=== PATIENT | male | born 1945 | race Caucasian/White ===

== ENCOUNTER → 2018-12-28 13:36 | Outpatient (CLI) | payer OTHER, SELFPAY ==
--- NOTE | 2018-12-28 09:00 | DI.ECHO.S_ITS ---
Echocardiogram Report + + :Name: ISA DENIS Study Date: 12/28/2018 Height: 71 in : :[facility] Exam Location: [facility] Weight: 240 lb : : Gender: Male BSA: 2.3 m2 : :: 1945 Age: 73 yrs BP: 140/80 mmHg: :Reason For Study: Murmur : : Performed By: Carmen Page : :Referring: TITO BOWEN S : + + Interpretation Summary The left ventricle is normal in size. Left ventricular systolic function is normal. The ejection fraction is estimated to be 60-65%. There are no obvious focal wall motion abnormalities noted but poor endocardial definition reduces the sensitivity for the detection of such. The right ventricle is normal in size and function. Right ventricular systolic pressure is estimated to be 23 mmHg plus the clinically estimated CVP which cannot be estimated on this exam. The left atrium is moderately dilated. Right atrial size is normal. There is mild to moderate mitral annular calcification. There is mild aortic stenosis. There is no other significant valvular heart disease. The ascending aorta is mildly enlarged. The aortic arch is mildly enlarged. Procedure: A two-dimensional transthoracic echocardiogram with color flow and Doppler was performed. The study quality was technically adequate. There is no prior echocardiogram noted for this patient. The patient was in normal sinus rhythm during the exam. Left Ventricle: The left ventricle is normal in size. There is mild concentric left ventricular hypertrophy. Left ventricular systolic function is normal. The ejection fraction is estimated to be 60-65%. There are no obvious focal wall motion abnormalities noted but poor endocardial definition reduces the sensitivity for the detection of such. Diastolic function could not be accurately assessed due to contradictory data. Right Ventricle: The right ventricle is normal in size and function. Atria: The left atrium is moderately dilated. Right atrial size is normal. There is no Doppler evidence for an interatrial shunt. Mitral Valve: The mitral valve leaflets appear mildly thickened, but open well. There is mild to moderate mitral annular calcification. There is trace mitral regurgitation. Aortic Valve: The aortic valve is trileaflet. The aortic valve is mildly calcified. There is mild aortic stenosis. The peak aortic velocity is 2.5 m/sec. The aortic valve mean gradient is 15.3 mmHg. The calculated aortic valve area is 1.8 cm2. The aortic valve area is 1.5 centimeters squared by planimetry. There is trace aortic regurgitation. Tricuspid Valve: The tricuspid valve is normal in structure and function. There is trace tricuspid regurgitation. Right ventricular systolic pressure is estimated to be 23 mmHg plus the clinically estimated CVP which cannot be estimated on this exam. Pulmonic Valve: The pulmonic valve is not well seen, but is grossly normal. There is no pulmonic valvular regurgitation. There is no other significant valvular heart disease. Great Vessels: The aortic root is normal size. The ascending aorta is mildly enlarged. The aortic arch is mildly enlarged. The pulmonary artery is not well visualized, but is probably normal size. The inferior vena cava was not well visualized. The IVC has a measurement of 2.0 mm. Pericardium/ Pleura There is no pericardial effusion. There is no pleural effusion. MMode/2D Measurements & Calculations LVIDd: 4.5 cm LVOT diam: 2.2 cm LVIDs: 2.1 cm Ao root diam: 3.8 cm FS: 52.3 % asc Aorta Diam: 3.6 cm EPSS: 0.23 cm Ao Arch Diam (Prox Trans): 3.8 cm IVSd: 1.2 cm LVPWd: 1.2 cm LV odell. diameter/BSA (cm/m^2): 2.0 LV sys. diameter/BSA (cm/m^2): 0.93 LA A2 area: 30.2 cm2 RA long axis: 5.7 cm LA A4 area: 29.6 cm2 RA area: 21.4 cm2 LA length (vol): 7.3 cm RA vol: 68.3 ml LA vol: 103.9 ml RA : 30.0 ml/m2 LA vol index: 45.6 ml/m2 IVC diam: 2.0 cm RVD1 (basal): 4.0 cm Doppler Measurements & Calculations Ao V2 max: 247.2 cm/sec LVOT Max Mc: 114.8 cm/sec Ao V2 mean: 188.1 cm/sec LV V1 max P.3 mmHg Ao max P.4 mmHg LV V1 VTI: 26.6 cm Ao mean P.3 mmHg DELMAR(I,D): 2.1 cm2 Ao V2 VTI: 48.0 cm DELMAR(V,D): 1.8 cm2 sev ratio: 0.55 DELMAR indexed to BSA (cm^2/m^2): 0.94 MV E max mc: 106.5 cm/sec TR max mc: 241.5 cm/sec MV A max mc: 141.8 cm/sec TR max P.3 mmHg MV E/A: 0.75 PA V2 max: 78.6 cm/sec Med Peak E' Mc: 4.0 cm/sec PA V2 mean: 50.0 cm/sec E/E' med: 26.4 PA mean P.2 mmHg Lat Peak E' Mc: 6.1 cm/sec PA Accel Time: 0.11 sec E/E' lat: 17.5 E/e' average: 22.0 MV dec time: 0.27 sec MV P1/2t: 81.0 msec MVA(VTI): 2.4 cm2 MV V2 mean: 80.6 cm/sec MV P1/2t max mc: 108.2 cm/sec MV mean P.1 mmHg MVA(P1/2t): 2.7 cm2 MV V2 VTI: 42.3 cm SV(LVOT): 102.3 ml _ Reading Physician:04:56 PM
== END ==
PROVIDERS: Visit Provider Nurse Practitioner Acute Care
DX: I35.0 Nonrheumatic aortic (valve) stenosis (principal); I77.89 Other specified disorders of arteries and arterioles; R01.1 Cardiac murmur, unspecified
CPT/HCPCS: 93306

== ENCOUNTER → 2021-12-18 10:40 | Outpatient (CLI) | payer OTHER, SELFPAY ==
[2021-12-18 12:02] LABS: Add Manual Diff / Slide Review NO; Basophils Absolute Auto 100 /uL (0-100); Basophils Percent Auto 0.6 % (0-2); Eosinophils Absolute Auto 200 /uL (0-450); Eosinophils Percent Auto 2.2 % (2-4); Hematocrit 48.2 % (41-53); Hemoglobin 16.8 g/dL (13.5-17.5); Lymphocytes Absolute Auto 2400 /uL (1100-4500); Lymphocytes Percent Auto 21.3 % (25-40); Mean Corpuscular HGB Conc 34.8 % (30-36); Mean Corpuscular Hemoglobin 30.4 PG (26-34); Mean Corpuscular Volume 87.4 fL (80-100); Monocytes Absolute Auto 800 /uL (0-900); Monocytes Percent Auto 7.1 % (3-14); Neutrophils Absolute Auto 7600 /uL (1500-7000); Neutrophils Percent Auto 68.8 % (50-75); Platelet Count 232 X10^3/uL (150-400); Red Blood Cell Count 5.51 X10^6/uL (4.5-5.9); Red Cell Distribution Width 13.1 % (11.6-14.8)
[2021-12-18 12:10] LABS: Hemoglobin A1C% w Est Avg Glu 9.7 % (4.0-6.0)
[2021-12-18 12:12] LABS: BUN Creatinine Ratio 15.4 (6-22); Blood Urea Nitrogen 12 mg/dL (9-20); Calcium 9.1 mg/dL (8.4-10.2); Carbon Dioxide 29 mmol/L (22-32); Chloride 103 mmol/L (98-107); Estimated Glomerular Filt Rate > 60 mL/min (>60); Glucose 121 mg/dL (80-110); HEMOLYSIS 16 (0-50); Potassium 3.9 mmol/L (3.4-5.1); Sodium 141 mmol/L (137-145)
== END ==
PROVIDERS: Referring Provider Orthopaedic Surgery; Visit Provider Orthopaedic Surgery
DX: Z01.818 Encounter for other preprocedural examination (principal); M25.561 Pain in right knee; R73.9 Hyperglycemia, unspecified; Z01.812 Encounter for preprocedural laboratory examination
CPT/HCPCS: 36415; 80048; 83036; 85025; 93005

== ENCOUNTER → 2022-03-24 11:30 | Outpatient (CLI) | payer OTHER, SELFPAY ==
[2022-03-24 12:47] LABS: COVID19 -Nasal RAPID Negative (Negative)
== END ==
PROVIDERS: Referring Provider Orthopaedic Surgery; Visit Provider Orthopaedic Surgery
DX: Z20.822 Contact with and (suspected) exposure to COVID-19 (principal)
CPT/HCPCS: 87635; C9803

== ENCOUNTER 2022-03-27 05:23 | Observation (INO) | payer OTHER, SELFPAY ==
[2022-03-17 13:49] VITALS: BMI 32.1
[2022-03-26] VITALS (14 sets, daily range): BP systolic 114–141; BP diastolic 53–74; PULSE 71–89; RESP 12–18; TEMP 35.7–37.1; O2SAT 90–96; BMI 32.1
--- NOTE | 2022-03-26 06:00 | DI.RAD.S_ITS ---
PROCEDURE: XR KNEE RT 1TO2V INDICATIONS: total right knee TECHNIQUE: 2 views of the knee were acquired. COMPARISON: None. FINDINGS: Bones: Total knee arthroplasty noted in good position. No fracture. Diffuse atherosclerotic vascular calcification noted. Postprocedural soft tissue air joint effusion noted. Soft tissues: No suspicious soft tissue calcifications. IMPRESSION: Total right knee arthroplasty in good position Approved by: Humberto Chapin M.D. on 03/26/2022 at 9:00
[2022-03-26] MEDS: ACETAMINOPHEN 325 MG TABLET 975 MG PO (07:20)
[2022-03-26] MEDS: CELECOXIB 200 MG CAPSULE PO (07:20)
--- NOTE | 2022-03-26 07:20 | PM.PREOP ---
Pre-operative Note COVID-19 COVID-19 status: Negative Result date/Date tested (Pos, Neg/Pending): 03/24/22 Interval Note History & Physical reviewed/Exam performed by Physician: Yes Changes to H&P: No
[2022-03-26] MEDS: CEFAZOLIN 2 GM/100 ML PREMIX 100 ML IV (08:12)
[2022-03-26] MEDS: TRANEXAMIC ACID 1,000 MG VIAL 2000 MG INJ ×2 (08:15→09:14)
--- NOTE | 2022-03-26 08:36 | SUR.OPER ---
Supine on padded OR bed. Pillow under head, arms secured on padded armboards <90 degree abduction. Safety belt across torso. Non-operative leg secured with tape over blanket over lower leg. Operative leg secured in DeMayo positioner.
[2022-03-26] MEDS: BUPIVACAINE LIPOSOME 266 MG/20 ML VIAL INJ (08:43)
[2022-03-26] MEDS: MORPHINE 4 MG/ML INJ INJ (08:43)
[2022-03-26] MEDS: BUPIVACAINE 0.5% (PF) VIAL 30 ML INJ (08:46)
[2022-03-26] MEDS: SODIUM CHLORIDE 0.9% FLUSH 30 ML IV (08:48)
[2022-03-26] MEDS: EPINEPHrine 1 MG/ML 0.3 MG INJ (08:50)
--- NOTE | 2022-03-26 09:45 | P.OP_ITS ---
Operative Date/Time/Diagnoses Date of procedure: 03/26/22 Time of procedure: 09:45 Pre-op diagnosis: Right knee osteoarthritis Post-op diagnosis: same Procedure & Clinicians Procedure: Right total knee replacement Same procedure as scheduled: Yes Indications: The patient has had progressively worsening right knee pain with radiographic changes consistent with arthritis. Non-operative management has failed and the patient has requested total knee replacement. The risks, benefits and alternatives to surgery were discussed with the patient prior to proceeding. Risks discussed included, but were not limited to, failure to relieve pain, stiffness, infection, nerve damage, deep venous thrombosis, pulmonary embolism, stroke, coma, heart attack, permanent paralysis and , as well as the potential need for eventual revision of the prosthetic. Surgeon: Evans Cho Cullet Washer: Robin Drew Click Yes if Unassisted: No Anesthesia Type: General, Spinal and Local Operative Notes Findings: Severe medial and moderate patellofemoral osteoarthritis with relative preservation the lateral compartment. Closure Type: primary Specimen(s): none sent Prosthetic devices, grafts, tissues, transplants, or devices: Implants used in this procedure were manufactured by the [employer] and [employer] and included the BCS II Journey total knee replacement with a size 6 right cobalt chromium femoral component, size 6 right non porous tibial base plate, a 9 mm cross-linked polyethylene tibial insert and a 32 mm oval Lily II patella. Applied: implant(s) Estimated Blood Loss (mL): 25 Blood products transfused: none Tourniquet time (min): 49 Procedure in detail: The patient was seen in the pre-operative area, where the patient identified the right knee as the operative site and this was marked with my initials. The patient received pre-operative antibiotics, and was taken to the operating room and placed on the operative table in the supine position. After satisfactory anesthesia, a time study clerk out was performed. The right leg was encircled with a tourniquet about the proximal thigh, and the leg was prepared from the toes to the tourniquet with ChloroPrep in the usual fashion and draped through sterile drapes. The leg was elevated and exsanguinated with Eschmark bandage and the tourniquet inflated to 250 mmHg pressure. The knee was approached through an approximately 18 cm incision centered over the patella and carried into the knee through a medial parapatellar arthrotomy. The anterior osteophytes and soft tissues were removed. The rotational landmarks of Patillas's line and the transepicondylar axis were marked on the femur with electrocautery, and intramedullary guide holes for the femur and tibia were created. The distal femoral cut was made in 6 degrees of valgus using the intramedullary guide at the primary cut setting. The proximal tibial cut was then made using the intramedullary guide, taking 9 mm of bone off the less involved side. The extension gap was checked and the rotation of the femoral component confirmed with the gap balancing system. The anterior, posterior and chamfer cuts were then made. The posterior osteophytes and soft tissues were then removed. The posterior capsule was injected with part of a mixture of 60 ml 0.25% Marcaine mixed with 20 ml Exparel and 4 mg of morphine for post-operative pain control. The remainder of this mixture was injected into the capsule and subcutaneous tissues during cement curing. The tibia was prepared with the rotation set by an extra medullary guide. Trial tibial and femoral components were then placed and the intercondylar notch cut through the femoral trial. Range of motion was 0-135 degrees, with good stability throughout the range. The patella was then cut to accommodate the patellar prosthetic. There was no need for a lateral release. The trials were then removed, and the femoral hole plugged with a bone plug. The bone was prepared with pulsatile lavage, and dried with a sponge. Cement was applied and the final prosthetics placed. Excess cement was removed during and after cement curing. After confirming there was no extruded cement posteriorly, the final tibial insert was placed. The knee was copiously irrigated and the tourniquet deflated. Hemostasis was obtained. The capsule was closed with interrupted # 2 polyester suture. The subcutaneous layer was closed with 3-0 Vicryl, and the skin with a running 3-0 V-Lock suture and SteriStrips. An Aquacel Ag dressing was applied and the patient was taken to recovery having tolerated the procedure well. Complications: none Post-operative Condition: stable Disposition: PACU Plan for aftercare: The patient will be maintained on a standard total knee replacement protocol with weight bearing as tolerated. The patient will receive aspirin and sequential compression devices for DVT prophylaxis. The patient will be discharged home when safe for the home environment.
[2022-03-26] MEDS: LACTATED RINGERS 1,000 ML 42 ML IV (10:32)
[2022-03-26] MEDS: ACETAMINOPHEN 325 MG TABLET 650 MG PO ×2 (12:51→17:17)
[2022-03-26] MEDS: IBUPROFEN 400 MG TABLET PO ×3 (12:51→20:29)
[2022-03-26] MEDS: LACTATED RINGERS 1,000 ML 100 ML IV (12:55)
--- NOTE | 2022-03-26 16:43 | PC.NURSE ---
Pt arrived from PACU, VSS,afebrile alert but sleepy. 02sats when alert 96% and above, while sleeping 02 saturation 88-90% on RA, placed 2 LNC for support. He reports numbness from waist down to toes and is able to minimally wiggle toes and do ankle waves. Pt denies n/v and tolerates lunch well. Later this afternoon he reports sensation returned to BLE's and wiggling toes noted 3-4/5 strength to LE's slightly duller feeling to RLE and pain with bending. PRASHANT wrap to R knee C/D/I. He continues to deny pain and is able to participate with PT this affternoon, standing up, and sitting in the chair. He is able to void using the urinal.Call light in reach, bed alarm on, LR [id number], continuous monitoring.
--- NOTE | 2022-03-26 16:50 | PT.IIE ---
Current Diagnoses Unilateral primary osteoarthritis, right knee (03/26/22) Sprain of other specified parts of right knee, initial encounter (03/26/22) Surgery Performed Operation Date: 03/26/22 07:45 Actual Procedures p Total Knee Arthroplasty(Right) - Evans Cho MD Surgical History (Last Updated 03/17/22 @ 14:18 by Wendy Olivo, RN) Hx of appendectomy Hx of knee surgery Medical History (Last Updated 03/17/22 @ 14:18 by Wendy Olivo RN) Cryptococcal pneumonitis (2007) Diabetes Easy bruisability Hearing impaired Osteoarthritis Physical Therapy Inpatient Evaluation/Re-Eval M1 PT/OT-IP Prior Functional Status Start: 03/26/22 17:48 Freq: NEEDED Status: Active Protocol: Document 03/26/22 16:50 DLM (Rec: 03/26/22 18:04 DLM [id number]) Medical Review Prior Functional Status Medical History Reviewed Yes Diet/Fluid Consistency Regular Communication WFL, [place] with aides Mobility and Gait Independent without device before his knee injury, since his injury he uses a cane or crutch, he has had intermittent falls due to right knee giving out Activities of Daily Living and IADL's Independent Social History Household Members spouse Living Arrangements House Number of Floors (Floors) Two Floors Number of Stairs To Enter/Railing? can stay on first floor, one step to enter plus threshold Home Environment High Toilet,Walk in Shower,Tub /Shower Home Equipment Front Wheel Walker,Four Wheel Walker,Straight Cane,Crutches, Shower Seat with Backrest Employment Status Retired M2 PT-IP Current Condition Start: 03/26/22 17:48 Freq: NEEDED Status: Active Protocol: Document 03/26/22 16:50 DLM (Rec: 03/26/22 18:04 DLM [id number]) Physical Therapy Current Condition Current Condition Evaluation Date 03/26/22 Treatment Diagnosis right TKA, difficulty ambulating Onset Date 03/26/22 M3 PT-IP Subjective Start: 03/26/22 17:48 Freq: NEEDED Status: Active Protocol: Document 03/26/22 16:50 DLM (Rec: 03/26/22 18:04 DLM [id number]) Subjective Physical Therapy Visit Type Type Initial Evaluation Visit Start Time 16:10 Visit Stop Time 16:50 Total Visit Minutes 40 Number of CLAIMS TECHNICIAN Visits 0 Physical Therapy Visit Comments Patient Comments He has no pain in his knee, feels numb in knee but not the rest of the LE Patient Goals discharge home with his M4 PT-IP Mobility and Gait Start: 03/26/22 17:48 Freq: NEEDED Status: Active Protocol: Document 03/26/22 16:50 DLM (Rec: 03/26/22 18:04 DL [id number]) PT-Bed Mobility Assessment Supine to Sit Supine to Sit Contact Guard Assistance, Minimal Assistance,Bedrails Sit to Supine Sit to Supine Standby Assistance Scooting Scooting to Edge of Bed Independent PT-Transfer Assessment Sit to and From Stand Sit to and from Stand Contact Guard Assistance,Use of Upper Extremities Equipment Transfer Assistive Device Gait Belt,Front Wheeled Walker Transfers Transfer Destination Bed Transfer Technique Stand Step Pivot Transfer Ability Level of Assist Contact Guard Assistance,Use of Upper Extremities Comments Mobility Comments standing at edge of bed with FWW, education to use UE assist with sit-stand and on FWW to manage right LE, he stood to urinate with urinal Gait Assessment Gait Gait Assistance Required: Contact Guard Assist Distance (Feet) 4 Assistive Devices Assistive Device Gait Belt,Front Wheeled Walker Gait Deviations General Gait Pattern Antalgic,Decreased Stride Length,Step-to Gait Factors Limiting Gait Function Factors Limiting Gait Function Decreased Activity Tolerance, Decreased Strength,Limited Range of Motion,Pain,Poor Balance Comments Gait Comments side-stepping at edge of bed with FWW, education to use UE' s to manage Right LE Stair Climbing Assessment Comments Stair Climbing Comments to do stair training before discharge home PT-Balance Assessment Sitting Balance and Reactions Static Sitting Balance Ability Normal Dynamic Sitting Balance Ability Normal Standing Balance and Reactions Static Standing Balance Ability Good Dynamic Standing Balance Ability Fair Device Used FWW M5 PT-IP Objective Assessments Start: 03/26/22 17:48 Freq: NEEDED Status: Active Protocol: Document 03/26/22 16:50 DLM (Rec: 03/26/22 18:04 DL [id number]) Orientation Orientation/Cognition Level of Alertness Alert Orientation Name,Age,Birthday,Month,Date, Year,Day of Week,Place, Situation Language Function Ability Hard of Hearing Safety Awareness Decreased Safety Awareness Memory Description No Deficits Noted Comments needs education on safety issues after surgery Gross Range of Motion Upper Extremity ROM Assessment Right Impaired Impairments right shoulder elevation to 90 degrees, too painful to do more Lower Extremity ROM Assessment Right Impaired Impairments right knee lacking 10 degrees extension in supine, knee flex actively to 80 degrees sitting Strength Upper Extremity Strength Assessment Right Impaired Shoulder elevation 3+/5 Lower Extremity Strength Assessment Right Impaired Hip able to lift LE off bed Knee seated knee ext 3/5 Ankle DF 5/5 Comments Strength Comments right TKA post-op limitations Coordination Assessment Gross Coordination Gross Coordination WNL Sensation Assessment Sensation Gross Sensation Right LE Impaired Sensation Description Numbness Comments Sensation Comments he reports knee area feels numb, ale wrap in place, can feel touch to foot and thigh Muscle Tone Muscle Tone WNL Yes M6 PT-IP Treatment Start: 03/26/22 17:48 Freq: NEEDED Status: Active Protocol: Document 03/26/22 16:50 DLM (Rec: 03/26/22 18:04 DLM [id number]) Physical Therapy Treatment Exercises Exercises Ankle Pumps Education Education Provided Weight Bearing Status,Safety Other Treatments Other Treatment Performed His is present this visit M7 PT-IP Assessment and Plan Start: 03/26/22 17:48 Freq: NEEDED Status: Active Protocol: Document 03/26/22 16:50 DLM (Rec: 03/26/22 18:04 DLM [id number]) PT Summary Assessment and Plan Potential Rehabilitation Potential Good Status of Condition at Evaluation Evolving Summary Impairments Pain,ROM,Strength,Balance, Sensation,Bed Mobility, Transfers,Gait,Activity Tolerance Assessment Summary Michelet is alert and resting in bed. He shows good functional use of right LE but still reports numbness in his knee area. He is able to stand with FWW and side-step at edge of bed. He declined to get up to the recliner this visit and requested back to bed. Answered his many questions about home issues and progression of therapy. He has out-pt PT planned after discharge. His is present and supportive. Pt was able to stand to urinate this visit . Ice applied to surgical area after activity. If he continue to progress well anticipate he will be able to discharge home tomorrow. Will plan to advance his distances of gait and do stair training tomorrow. Goals Bed Mobility Goal Independent Transfer Goal Independent,Front Wheeled Walker Gait Goal Independent,Front Wheel Walker Gait Distance 100 feet Other Goals up and down one step with FWW and CG/SBA Days to Meet Goals 2 Frequency of Treatment Frequency Of Treatment Twice a Day Treatment Plan Physical Therapy Treatment Plan Bed Mobility Training,Transfer Training,Gait Training, Therapeutic Exercise,Balance Retraining,Post Op Education, Discharge Planning,Hot or Cold Pack,Neuromuscular Re-ed Other Recommendations and Next Treatment he needs plastic caps for FWW Focus for home, provide written post -op packet with HEP Precautions Other Precautions falls before surgery Weight Bearing Status Weight Bearing Status Weight Bear as Tolerated Recommendations To Nursing Amount of Assist Needed 1 Person Assist Discharge Recommendations PT Discharge Recommendations Home with Assistance, Outpatient PT Other Discharge Recommendations His plans to assist him at home Transportation Needs at Discharge Private Vehicle
[2022-03-26] MEDS: INSULIN LISPRO 100 UNIT/ML 3ML VIAL SUBCUT ×2 (17:08→20:25)
[2022-03-26] MEDS: DOCUSATE 100 MG CAPSULE PO (20:29)
[2022-03-26] MEDS: glipiZIDE 5 MG TABLET 10 MG PO (20:29)
[2022-03-26] MEDS: METFORMIN HCL 500 MG TABLET 1000 MG PO (20:29)
[2022-03-26] MEDS: ASPIRIN EC 81 MG TABLET PO (20:29)
[2022-03-27 02:00] VITALS: BP 125/54; PULSE 67; RESP 17; TEMP 37.1; O2SAT 95
[2022-03-27] MEDS: IBUPROFEN 400 MG TABLET PO ×3 (05:50→12:28)
[2022-03-27] MEDS: ACETAMINOPHEN 325 MG TABLET 650 MG PO ×2 (05:50→12:28)
[2022-03-27 06:00] VITALS: BP 145/76; PULSE 78; RESP 16; TEMP 36.5; O2SAT 95
--- NOTE | 2022-03-27 06:19 | PC.NURSE ---
Pt. was trying to reached for his call light that was wedged between his bed frame & mattress. Pulled out his IV access, he's been drinking some water, denies any nausea. Voiding QS 450 & 400 cc, will let his MD know about the incident. Will cont. POC & monitor.
--- NOTE | 2022-03-27 07:05 | PM.DS.1 ---
History of Present Illness History of Present Illness Date Patient Seen: 03/27/22 Time Patient Seen: 07:05 Chief complaint: OPB Narrative: The history and physical are contained in the chart previously completed note. Please refer to that note for this information. Discharge Providers Provider Date of admission: March 26, 2022 Discharge Date: 03/27/22 Primary care physician: Doctor Lucio MD Consults: 03/26/22 12:12 Consult to Discharge Planning Routine Comment: Consult to Physical Therapy Evaluate & Treat Comment: Physician Instructions: postop TKA protocol Discharge provider: Evans Cho MD Summary Hospital Course Discharge Diagnosis: 1. Right knee osteoarthritis Hospital Course: The patient was admitted to the hospital and taken directly to the operating room on March 26, 2022. He underwent a right total knee replacement without complications. He was comfortable on postoperative day 1 and felt to be ready for discharge. Status at Discharge Cognitive/behavioral status at discharge: at baseline, oriented Functional status at discharge: uses cane/walker Overall status at discharge: patient is progressing back to baseline Time Spent with Patient Time spent: Less than 30 minutes Exam Vital Signs (past 8 hours): - 03/27/22 02:00 03/27/22 06:00 Temperature 98.7 F 97.7 F Pulse Rate 67 78 Respiratory Rate 17 16 Blood Pressure 125/54 L 145/76 H Pulse Oximetry 95 95 Oxygen Flow Rate 0 0 Oxygen Delivery Method Nasal Cannula Oxygen Flow Rate 0 Narrative Exam Narrative: Right knee wound is dressed with no drainage on the bandage. Calf is soft. Light touch and motion are intact in the right lower extremity. [facility] Medical History (Updated 03/17/22 @ 14:18 by Wendy Olivo RN) Cryptococcal pneumonitis (2007) Diabetes Easy bruisability Hearing impaired Osteoarthritis Surgical History (Updated 03/17/22 @ 14:18 by Wendy Olivo RN) Hx of appendectomy Hx of knee surgery Social History household members: spouse Smoking Status: Former smoker alcohol intake: current Discharge Assessment & Plan Assessment and Plan Assessment: Stable postop day 1 status post right total knee replacement. No apparent barriers to discharge. Plan of Treatment: Physical therapy this morning followed by discharge. Follow up in my office in 10-14 days. Discharge prescriptions have already been provided for oxycodone. He has been instructed in the use of Tylenol and ibuprofen for additional pain control and the use of low-dose aspirin for DVT prophylaxis. Discharge Plan Discharge Plan Patient Disposition: Home Discharge orders & Medications Discharge Orders: Discharge (Order); Ordered 03/27/22 Ordered By: Evans Cho Prescriptions: New acetaminophen 325 mg Tablet 650 mg PO Q6HR Qty: 100 0RF aspirin 81 mg Tablet,Delayed Release (Dr/Ec) 81 mg PO BID Qty: 84 0RF oxycodone 5 mg Tablet 5 mg PO Q3HR PRN (Reason: Pain, Moderate (4-6)) Qty: 40 0RF Continued ibuprofen 800 mg Tablet 800 mg PO Q8H PRN (Reason: Pain) glipizide 10 mg Tablet 10 mg PO BID metformin 1,000 mg Tablet 1,000 mg PO BID empagliflozin 25 mg Tablet 12.5 mg PO QAM aspirin-sod bicarb-citric acid 500 mg Tablet, Effervescent 1 ea PO BEDTIME Discontinued acetaminophen 500 mg Tablet 500 mg PO DAILY PRN (Reason: Pain) aspirin 325 mg Tablet 325 mg PO BEDTIME Follow up/Referrals: Doctor Valdes MD [Primary Care Provider] - Evans Cho MD [Physician] - As previously scheduled (Follow up w/ Robin Drew PA-C, on 04/08/2022 @ 2:00 pm @ [facility] office in [place].) Diet/Activity/Treatments Diet: Diet as Tolerated Activity: Walk frequently! You may bear weight as tolerated on your right leg. Cold/Heat Therapy: Ice to knee as needed for pain. Skin/Wound/Dressing Care Report to your healthcare provider any signs of infection, such as:: chills, fever, night sweats, unusual drainage and unusual redness Dressing: May remove PRASHANT wrap and shower. Leave Aquacel dressing in place until follow up appointment. No bathing or otherwise soaking incision. Call office if dressing becomes saturated inside. Visit Report/Discharge Packet Instructions: DI for Knee Replacement Stand Alone Forms: Surgery Discharge Discharge Data Primary Care Provider: Doctor Lucio Attending Provider: Evans Cho
[2022-03-27 07:34] LABS: Hematocrit 46.5 % (41-53); Hemoglobin 15.4 g/dL (13.5-17.5)
[2022-03-27 08:00] VITALS: BP 117/56; PULSE 71; RESP 18; TEMP 36.6; O2SAT 98
[2022-03-27] MEDS: EMPAGLIFLOZIN 25 MG 12.5 EACH PO (09:01)
[2022-03-27] MEDS: ASPIRIN EC 81 MG TABLET PO (09:01)
[2022-03-27] MEDS: INSULIN LISPRO 100 UNIT/ML 3ML VIAL SUBCUT ×2 (09:02→12:26)
[2022-03-27] MEDS: DOCUSATE 100 MG CAPSULE PO (09:02)
[2022-03-27] MEDS: METFORMIN HCL 500 MG TABLET 1000 MG PO (09:02)
[2022-03-27] MEDS: glipiZIDE 5 MG TABLET 10 MG PO (09:18)
--- NOTE | 2022-03-27 09:45 | PT.IPTN ---
Current Diagnoses Unilateral primary osteoarthritis, right knee (03/26/22) Sprain of other specified parts of right knee, initial encounter (03/26/22) Surgery Performed Operation Date: 03/26/22 07:45 Actual Procedures p Total Knee Arthroplasty(Right) - Evans Cho MD Physical Therapy Treatment Note M2 PT-IP Current Condition Start: 03/26/22 17:48 Freq: NEEDED Status: Active Protocol: Document 03/26/22 16:50 DLM (Rec: 03/26/22 18:04 DLM [id number]) Physical Therapy Current Condition Current Condition Evaluation Date 03/26/22 Treatment Diagnosis right TKA, difficulty ambulating Onset Date 03/26/22 M3 PT-IP Subjective Start: 03/26/22 17:48 Freq: NEEDED Status: Active Protocol: Document 03/27/22 09:04 KS (Rec: 03/27/22 13:25 KS [id number]) Subjective Physical Therapy Visit Type Type Treatment Note Visit Start Time 09:04 Visit Stop Time 09:45 Total Visit Minutes 41 Notes present during treatment Number of TRAY DELIVERY AIDE Visits 1 Physical Therapy Visit Comments Patient Goals discharge home with his M4 PT-IP Mobility and Gait Start: 03/26/22 17:48 Freq: NEEDED Status: Active Protocol: Document 03/27/22 09:04 KS (Rec: 03/27/22 13:25 KS [id number]) PT-Bed Mobility Assessment Supine to Sit Supine to Sit Contact Guard Assistance,1 Person Assistance Sit to Supine Sit to Supine Standby Assistance Scooting Scooting to Edge of Bed Independent PT-Transfer Assessment Sit to and From Stand Sit to and from Stand Contact Guard Assistance,Use of Upper Extremities Equipment Transfer Assistive Device Gait Belt,Front Wheeled Walker Transfers Transfer Destination Bed Transfer Technique Pt ambulated w/ FWW Transfer Ability Level of Assist Contact Guard Assistance,Use of Upper Extremities Comments Mobility Comments Pt in bed upon arrival, agreeable to complete stair training. CGA for sup<>sit and sit<>stand w/ FWW. Pt then ambulated ~20 ft w/ FWW and completed 1x platform step w/ FWW CGA and cues for sequencing. He then ambulated additional 30 ft around room before returning to bed. Reveiwed exercises and safety. Pt feels physically able to go home w/ assisting. Gait Assessment Gait Gait Assistance Required: Contact Guard Assist,1 Person Assist Distance (Feet) 50 Assistive Devices Assistive Device Gait Belt,Front Wheeled Walker Gait Deviations General Gait Pattern Antalgic,Decreased Stride Length,Step-to Gait Factors Limiting Gait Function Factors Limiting Gait Function Decreased Activity Tolerance, Decreased Strength,Limited Range of Motion,Pain,Poor Balance Comments Gait Comments Improved tolerance for gait w/ FWW. No LOB. Stair Climbing Assessment Evaluation Level of Assist On Stairs Contact Guard Assistance,1 Person Assistance Devices Stair Climbing Assistive Devices Front Wheel Walker Technique/Endurance Stair Climbing Direction Ascend and Descend Stair Climbing Technique Step to Step Number of Steps Climbed 1 Stair Climbing Set # Repetitions (reps) 1 Comments Stair Climbing Comments Pt completed platform step w/ FWW CGA w/ cues for sequencing . Feels safe to complete at home w/ guarding/securing FWW. PT-Balance Assessment Sitting Balance and Reactions Static Sitting Balance Ability Normal Dynamic Sitting Balance Ability Normal Standing Balance and Reactions Static Standing Balance Ability Good Dynamic Standing Balance Ability Fair Device Used FWW M5 PT-IP Objective Assessments Start: 03/26/22 17:48 Freq: NEEDED Status: Active Protocol: Document 03/26/22 16:50 DLM (Rec: 03/26/22 18:04 DLM [id number]) Orientation Orientation/Cognition Level of Alertness Alert Orientation Name,Age,Birthday,Month,Date, Year,Day of Week,Place, Situation Language Function Ability Hard of Hearing Safety Awareness Decreased Safety Awareness Memory Description No Deficits Noted Comments needs education on safety issues after surgery Gross Range of Motion Upper Extremity ROM Assessment Right Impaired Impairments right shoulder elevation to 90 degrees, too painful to do more Lower Extremity ROM Assessment Right Impaired Impairments right knee lacking 10 degrees extension in supine, knee flex actively to 80 degrees sitting Strength Upper Extremity Strength Assessment Right Impaired Shoulder elevation 3+/5 Lower Extremity Strength Assessment Right Impaired Hip able to lift LE off bed Knee seated knee ext 3/5 Ankle DF 5/5 Comments Strength Comments right TKA post-op limitations Coordination Assessment Gross Coordination Gross Coordination WNL Sensation Assessment Sensation Gross Sensation Right LE Impaired Sensation Description Numbness Comments Sensation Comments he reports knee area feels numb, ale wrap in place, can feel touch to foot and thigh Muscle Tone Muscle Tone WNL Yes M6 PT-IP Treatment Start: 03/26/22 17:48 Freq: NEEDED Status: Active Protocol: Document 03/27/22 09:04 KS (Rec: 03/27/22 13:25 KS [id number]) Physical Therapy Treatment Exercises Exercises Ankle Pumps,Gluteal Sets,Quad Sets,Heel Slides,Straight Leg Raises Education Education Provided Weight Bearing Status,Safety Other Treatments Other Treatment Performed Instructed pts how to assist w/ FWW securing during stairs and cues for pt. M7 PT-IP Assessment and Plan Start: 03/26/22 17:48 Freq: NEEDED Status: Active Protocol: Document 03/27/22 09:04 [place] (Rec: 03/27/22 13:25 KS [id number]) PT Summary Assessment and Plan Potential Rehabilitation Potential Good Summary Impairments Pain,ROM,Strength,Balance, Sensation,Bed Mobility, Transfers,Gait,Activity Tolerance Progress Towards Goals Progressing Toward Goals Assessment Summary Pt able to perform bed mobility, transfers, ambulation, and platform step w/ CGA today. Able to tolerate 50 ft ambulation. able to provide cues and assist if needed. He will benefit from OPPT to improve strength, stability, and ROM. Goals Bed Mobility Goal Independent Transfer Goal Independent,Front Wheeled Walker Gait Goal Independent,Front Wheel Walker Gait Distance 100 feet Other Goals up and down one step with FWW and CG/SBA Days to Meet Goals 2 Frequency of Treatment Frequency Of Treatment Twice a Day Treatment Plan Physical Therapy Treatment Plan Bed Mobility Training,Transfer Training,Gait Training, Therapeutic Exercise,Balance Retraining,Post Op Education, Discharge Planning,Hot or Cold Pack,Neuromuscular Re-ed Precautions Other Precautions falls before surgery Weight Bearing Status Weight Bearing Status Weight Bear as Tolerated Recommendations To Nursing Amount of Assist Needed 1 Person Assist Discharge Recommendations PT Discharge Recommendations Home with Assistance, Outpatient PT Other Discharge Recommendations His plans to assist him at home Transportation Needs at Discharge Private Vehicle
--- NOTE | 2022-03-27 15:43 | CM.IDA ---
Initial DCP Assessment Note Pt is a 76 yo male, resident of [place], now POD#1 from Rt knee surgery by Dr Cho PCP: Jessica Sierra Payer: [facility] Reviewed chart, pt discussed in multidisciplinary rounds this morning. Therapy has cleared pt for return home w/family to assist and pt has planned for home, DC order from Ortho has already been initiated this morning. No barriers identified at this time to patient's safe discharge home w/family to assist; close outpatient f/u recommended. ANTONY Santana
== END 2022-03-27 13:00 | disposition home or self-care (01) ==
LOC: OR 03-28 08:45 → AC 03-28 08:45
PROVIDERS: Admitting Provider Orthopaedic Surgery; Referring Provider Orthopaedic Surgery; Visit Provider Orthopaedic Surgery
PROC: 0SRC0JZ Replacement of Right Knee Joint with Synthetic Substitute, Open Approach (ICD-10-PCS; CPT 27447; principal; 2022-03-26 07:45)
DX: M17.11 Unilateral primary osteoarthritis, right knee (principal); E11.9 Type 2 diabetes mellitus without complications; Z79.84 Long term (current) use of oral hypoglycemic drugs
CPT/HCPCS: 27447; 36415; 73560; 82962; 85014; 85018; 97110; 97116; 97162; 97530; C1776; G0378; C1713; C9290; J0171; J0690; J1100; J1815; J2250; J2270; J2274; J2405; J2704; J3010

== ENCOUNTER → 2022-10-23 11:18 | Outpatient (CLI) | payer OTHER, SELFPAY ==
[2022-03-26 14:15] VITALS: BMI 32.1
--- NOTE | 2022-10-23 | DI.CT.S_ITS ---
PROCEDURE: CT UE RT WO CON INDICATIONS: Pain in right shoulder TECHNIQUE: Noncontrast 1-1.5 mm thick sections acquired from the acromioclavicular joint to the inferior scapula, with coronal and sagittal reformatting. COMPARISON: [facility], CR, XR SHOULDER 2+ VIEWS RIGHT, 10/07/2022, 13:39. FINDINGS: Image quality: Excellent. Bones: Moderate acromioclavicular joint osteoarthritic changes are seen with significant joint space narrowing, subchondral sclerosis and small marginal osteophyte formation depressing on musculotendinous junction of supraspinatus. Severe glenohumeral joint osteoarthritic changes are seen with near complete loss of mid to inferior joint space, extensive subchondral sclerosis and cyst formation and prominent inferior marginal osteophyte formation. Nonspecific intraosseous cyst formation in greater tuberosity of humeral head is seen. No acute fracture or dislocation. No suspicious bony lesions. Visualized right ribs are intact. Soft tissues: There is no full-thickness rotator cuff tendon rupture. Sagittal views show no significant rotator cuff muscle atrophy. There is no significant joint effusion or intra-articular loose bodies. No abnormal soft tissue calcifications. No axillary lymphadenopathy. IMPRESSION: 1. Moderate acromioclavicular joint osteoarthritis and severe glenohumeral joint osteoarthritis. No shoulder fracture or dislocation. No suspicious bony lesions. 2. No full-thickness rotator cuff tendon rupture. No rotator cuff muscle atrophy. No abnormal soft tissue calcifications. Dictated by: Estuardo Betancourt M.D. on 10/23/2022 at 12:51 Approved by: Estuardo Betancourt M.D. on 10/23/2022 at 12:53
== END ==
PROVIDERS: Referring Provider Orthopaedic Surgery; Visit Provider Orthopaedic Surgery
DX: M19.011 Primary osteoarthritis, right shoulder (principal); M25.511 Pain in right shoulder
CPT/HCPCS: 73200

== ENCOUNTER → 2022-11-05 11:10 | Outpatient (CLI) | payer OTHER, SELFPAY ==
[2022-03-26 14:15] VITALS: BMI 32.1
[2022-11-05 12:54] LABS: Add Manual Diff / Slide Review NO; Basophils Absolute Auto 100 /uL (0-100); Basophils Percent Auto 0.6 % (0-2); Eosinophils Absolute Auto 200 /uL (0-450); Eosinophils Percent Auto 1.8 % (2-4); Hematocrit 51.1 % (41-53); Hemoglobin 17.4 g/dL (13.5-17.5); Lymphocytes Absolute Auto 1700 /uL (1100-4500); Lymphocytes Percent Auto 17.3 % (25-40); Mean Corpuscular HGB Conc 34.1 % (30-36); Mean Corpuscular Hemoglobin 30.4 PG (26-34); Mean Corpuscular Volume 89.2 fL (80-100); Monocytes Absolute Auto 700 /uL (0-900); Monocytes Percent Auto 6.8 % (3-14); Neutrophils Absolute Auto 7200 /uL (1500-7000); Neutrophils Percent Auto 73.5 % (50-75); Platelet Count 256 X10^3/uL (150-400); Red Blood Cell Count 5.73 X10^6/uL (4.5-5.9); Red Cell Distribution Width 13.7 % (11.6-14.8); White Blood Cell Count 9.9 X10^3/uL (4.5-11.0)
[2022-11-05 13:25] LABS: BUN Creatinine Ratio 20.7 (6-22); Blood Urea Nitrogen 17 mg/dL (9-20); Calcium 9.4 mg/dL (8.4-10.2); Carbon Dioxide 25 mmol/L (22-32); Chloride 101 mmol/L (98-107); Estimated Glomerular Filt Rate > 60 mL/min (>60); Glucose 185 mg/dL (80-110); HEMOLYSIS < 15 (0-50); Potassium 4.4 mmol/L (3.4-5.1); Sodium 138 mmol/L (137-145)
== END ==
PROVIDERS: Referring Provider Orthopaedic Surgery; Visit Provider Orthopaedic Surgery
DX: Z01.818 Encounter for other preprocedural examination (principal); Z01.812 Encounter for preprocedural laboratory examination; M25.511 Pain in right shoulder
CPT/HCPCS: 36415; 80048; 85025; 93005

== ENCOUNTER 2022-11-26 10:43 | Inpatient (IN) | payer OTHER, SELFPAY ==
[2022-03-26 14:15] VITALS: BMI 32.1
[2022-11-17 12:00] VITALS: BMI 31.2
[2022-11-26] VITALS (12 sets, daily range): BP systolic 111–160; BP diastolic 60–85; PULSE 81–103; RESP 12–20; TEMP 36–36.6; O2SAT 90–96; BMI 31.2
[2022-11-26] MEDS: LACTATED RINGERS 1,000 ML 42 ML IV ×2 (11:36→14:18)
[2022-11-26 11:57] LABS: COVID19 -Nasal RAPID Negative (Negative)
--- NOTE | 2022-11-26 12:12 | PM.PREOP ---
Pre-operative Note COVID-19 COVID-19 status: Negative Result date/Date tested (Pos, Neg/Pending): 11/26/22 Interval Note History & Physical reviewed/Exam performed by Physician: Yes Changes to H&P: No
--- NOTE | 2022-11-26 12:14 | DI.RAD.S_ITS ---
PROCEDURE: XR SHOULDER RT 1V INDICATIONS: Postop total shoulder TECHNIQUE: 1 views of the shoulder were acquired. COMPARISON: [facility], CT, CT UE RT WO CON, 10/23/2022, 11:34. FINDINGS: Status post shoulder arthroplasty. Hardware is intact without evidence of hardware fracture. Adjacent osseous structures are unremarkable. Soft tissues are within normal limits. Visualized portion of the right lung is unremarkable. IMPRESSION: Status post shoulder arthroplasty. Dictated by: Kimmy Shankar M.D. on 11/26/2022 at 15:39 Approved by: Kimmy Shankar M.D. on 11/26/2022 at 15:39
--- NOTE | 2022-11-26 12:45 | SUR.PREOP ---
Time Out 1229. Block start time [1230] . Monitoring initiated and maintained throughout procedure. Oxygen and medications given by anesthesiologist . Patient remained stable throughout procedure, no adverse reactions noted. Block end time [1240].
[2022-11-26] MEDS: ACETAMINOPHEN 325 MG TABLET 975 MG PO (12:48)
[2022-11-26] MEDS: CELECOXIB 200 MG CAPSULE PO (12:48)
[2022-11-26] MEDS: CEFAZOLIN 2 GM/100 ML PREMIX 100 ML IV ×2 (13:00→21:14)
[2022-11-26] MEDS: TRANEXAMIC ACID 1,000 MG VIAL 1000 MG INJ (13:12)
--- NOTE | 2022-11-26 13:47 | SUR.OPER ---
Beach chair with Schlein shoulder positioner. Lower body on padded OR bed. Head in foam padded head cradle, secured with straps. Non-operative arm secured <90 degrees abduction. Pillow under knees. Safety belt at thigh. Cloth tape over blanket over lower legs.
[2022-11-26] MEDS: BUPIVACAINE 0.25% (PF) 10 ML, EPINEPHrine 0.3 MG INJ (14:20)
[2022-11-26] MEDS: THROMBIN (RECOMBINANT) 5,000 UNIT VIAL 5000 UNIT TOP (14:22)
--- NOTE | 2022-11-26 14:53 | PM.OP.1 ---
Operative Date/Time/Diagnoses Date of procedure: 11/26/22 Time of procedure: 14:53 Pre-op diagnosis: Right shoulder osteoarthritis Post-op diagnosis: same Procedure & Clinicians Procedure: Right total shoulder replacement Same procedure as scheduled: Yes Indications: The patient has had progressively worsening right shoulder pain with radiographic changes consistent with arthritis. Non-operative management has failed and the patient has requested total shoulder replacement. The risks, benefits and alternatives to surgery were discussed with the patient prior to proceeding. Risks discussed included, but were not limited to, failure to relieve pain, stiffness, infection, nerve damage, deep venous thrombosis, pulmonary embolism, stroke, coma, heart attack, permanent paralysis and , as well as the potential need for eventual revision of the prosthetic. Surgeon: Evans Cho Methods Engineer: Robin Drew Click Yes if Unassisted: No Anesthesia Type: General, Peripheral nerve block and Local Operative Notes Findings: Severe osteoarthritis of the right shoulder with large humeral osteophytes and multiple loose bodies. Closure Type: primary Specimen(s): none sent Prosthetic devices, grafts, tissues, transplants, or devices: Implants used in this procedure were manufactured by the [employer] and included a canal sparing size 2 humeral stem, a 50 mm x 18 mm humeral head with a neutral neck and a 50 mm all polyethylene pegged E +glenoid. Applied: implant(s) Estimated Blood Loss (mL): 150 Blood products transfused: none Procedure in detail: The patient was seen in the pre-operative area, where the patient identified the right shoulder as the operative site and this was marked with my initials. The patient received pre-operative antibiotics, underwent an interscalene block, and was taken to the operating room and placed on the operative table in the supine position. After satisfactory anesthesia, a full ?time out? was performed. The patient was repositioned in the ?beach chair? position using a dedicated positioner. All pressure points were well padded, and the knees were slightly bent to prevent tension on the sciatic nerves. The right arm was prepared from the fingers to the base of the neck with ChloroPrep in the usual fashion and draped through sterile drapes. An approximately 15 cm incision was created, starting at the clavicle above the coracoid process and extended towards the deltoid insertion. The deltopectoral interval was used to access the shoulder. The cephalic vein was taken medially. A self retaining retractor was placed. The upper centimeter of the pectoralis major tendon was released. The ?three sisters? were identified and cauterized. The axillary nerve was palpated and protected throughout the case. The biceps was released from its groove and tenodesed over the top of the pectoralis major tendon. The subscapularis was released from the lesser tuberosity with a subscapularis peel and tagged for later repair. The shoulder was dislocated and a cutting guide was used for the proximal humeral osteotomy in 30 degrees of retroversion. The proximal humerus was inspected for bone density and found to be quite robust. A trial humeral head was used to place a guide pin in the center of the metaphysis and this was over reamed with a collar Reamer. The size 2 Broach was then impacted into position. A humeral head protector was applied. We then removed the self-retaining retractor and placed retractors to access the glenoid. The subscapularis was released with a ?360 degree release? with care being taken to protect the axillary nerve with the inferior portion of this procedure. The remnant of labrum and biceps stump were removed. The appropriate size reamer was chosen with the glenoid sizer, and the guide pin placed. The glenoid was appropriately reamed. The guide for the peripheral holes was used and the center hole enlarged. The trial glenoid was placed with good stability. We then cemented the final implant into place after irrigating the peg holes and drying them with thrombin-soaked Gelfoam. We returned our attention to the humerus, a trial humeral head was applied and a trial reduction performed. Stability was checked with 50% posterior translation with spontaneous reduction, 40? external rotation the side with the subscapularis held in the repaired position, internal rotation to in excess of 70? in the ?scarecrow position?. This was felt to be satisfactory and the appropriate implants were opened. Five holes were drilled along the humeral osteotomy and #2 Ethibond sutures placed for eventual subscapularis repair. The humeral prosthetic was partially impacted into the humerus and the sutures brought through the anterior ring of the prosthetic. It was then more completely impacted. The humeral head was applied when the stem was still slightly proud and impacted to both seat the head and fully seat the stem. The joint was relocated one final time. The joint was irrigated and the subscapularis repaired to the previously placed sutures using Cole-Mayo sutures. The top of the subscapularis was closed to the leading edge of the supraspinatus with a figure of 8 #2 Ethibond to close the rotator interval. The deltopectoral interval was closed with interrupted 0 Vicryl. The subcutaneous layer was closed with 3-0 Vicryl, and the skin with a running 3-0 V-Lock suture and SteriStrips. An Aquacel Ag dressing was applied, the patient?s arm was placed in a sling, and the patient was taken to recovery having tolerated the procedure well. The services of a skilled surgical territory manager were required during this case to provide positioning of the arm, exposure and retraction to protect vital structures. Without the services of Mr. Drew, the procedure could not have been done in a safe, expedient manner. Complications: none Post-operative Condition: stable Disposition: PACU Plan for aftercare: The patient will be maintained on a standard total shoulder protocol. He will be allowed to use his hand in front of his body below shoulder level to lift 1-2 lb for the 1st 2 weeks. This will then be expanded according to the rehab protocol. He will likely discharge tomorrow morning.
--- NOTE | 2022-11-26 15:52 | PC.NURSE ---
Postop Note Pt arrived to room 218 from PACU at 1550. Pt is drowsy but opens eyes, responses are slow but able to answer questions. Aquacel dressing D/I with small amount bloody drainage to top. Good pulse to RUE, able to move fingers. SpO2 91-92% on 2L NC. Oriented to room and to call light/bed/tv controls. Call light within reach. Bed alarm on for safety. Belongings in room, clothing, shoes and glasses. Declines to lock up valuables.
[2022-11-26] MEDS: LACTATED RINGERS 1,000 ML 100 ML IV (16:58)
[2022-11-26] MEDS: INSULIN LISPRO 100 UNIT/ML 3ML VIAL SUBCUT (17:22)
[2022-11-26] MEDS: ACETAMINOPHEN 325 MG TABLET 650 MG PO (18:46)
[2022-11-26] MEDS: glipiZIDE 5 MG TABLET 10 MG PO (21:13)
[2022-11-26] MEDS: DOCUSATE 100 MG CAPSULE PO (21:13)
[2022-11-26] MEDS: ASPIRIN EC 81 MG TABLET PO (21:13)
[2022-11-26] MEDS: METFORMIN HCL 500 MG TABLET 1000 MG PO (21:13)
[2022-11-27 03:00] VITALS: BP 112/55; PULSE 93; RESP 16; TEMP 36.2; O2SAT 95
[2022-11-27 05:25] LABS: Hematocrit 46.6 % (41-53); Hemoglobin 15.8 g/dL (13.5-17.5)
[2022-11-27] MEDS: CEFAZOLIN 2 GM/100 ML PREMIX 100 ML IV (06:30)
[2022-11-27] MEDS: INSULIN LISPRO 100 UNIT/ML 3ML VIAL SUBCUT ×2 (07:53→11:49)
[2022-11-27] MEDS: METFORMIN HCL 500 MG TABLET 1000 MG PO (08:41)
[2022-11-27] MEDS: DOCUSATE 100 MG CAPSULE PO (08:41)
[2022-11-27] MEDS: ASPIRIN EC 81 MG TABLET PO (08:41)
[2022-11-27] MEDS: glipiZIDE 5 MG TABLET 10 MG PO (08:41)
[2022-11-27] MEDS: EMPAGLIFLOZIN 25 MG 25 EACH PO (08:47)
--- NOTE | 2022-11-27 09:26 | CM.DANOTE ---
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 No History Provided By Patient,Significant Other, Medical Record Prior Living Arrangements House Household Members spouse Type of transporation used prior to Drives own vehicle admit Independent with ADL's Yes Is patient alert and oriented? Yes Barriers to Discharge No Comment Home w/spouse expected after therapy eval Discharge Plan Home Transportation Arrangement Spouse Referrals Initiated None needed
[2022-11-27 09:33] VITALS: BP 120/53; PULSE 80; RESP 17; TEMP 36.3; O2SAT 98
--- NOTE | 2022-11-27 11:00 | PM.DS.1 ---
History of Present Illness History of Present Illness Date Patient Seen: 11/27/22 Time Patient Seen: 07:00 Chief complaint: S/p R TSA Narrative: Patient is sitting comfortably in bed this morning with his at bedside. He says he has been doing extremely well and has had little to no pain to the shoulder. He says he does not want any oxycodone and has only needed some Tylenol so far. He says this is consistent with his rehab after total knee replacement. He says he has some intermittent vertigo at baseline. He would like to discharge home today if physical therapy goes well and he is safe to do so. Denies fever, chills, chest pain, shortness of breath. Discharge Providers Provider Date of admission: 11/26/22 10:43 Discharge Date: 11/27/22 Primary care physician: Doctor Lucio MD Consults: 11/26/22 15:51 Consult to Discharge Planning Routine Comment: Consult to Physical Therapy Evaluate & Treat Comment: Physician Instructions: pendulums, PROM 90 FF, 0 ER, 45 Abd, IR to body Discharge provider: Yoli Davies PA-C Summary Hospital Course Discharge Diagnosis: Status post right total shoulder arthroplasty Hospital Course: Operative Date/Time/Diagnoses Date of procedure: 11/26/22 Time of procedure: 14:53 Pre-op diagnosis: Right shoulder osteoarthritis Post-op diagnosis: same Procedure & Clinicians Procedure: Right total shoulder replacement Same procedure as scheduled: Yes Indications: The patient has had progressively worsening right shoulder pain with radiographic changes consistent with arthritis. Non-operative management has failed and the patient has requested total shoulder replacement. The risks, benefits and alternatives to surgery were discussed with the patient prior to proceeding. Risks discussed included, but were not limited to, failure to relieve pain, stiffness, infection, nerve damage, deep venous thrombosis, pulmonary embolism, stroke, coma, heart attack, permanent paralysis and , as well as the potential need for eventual revision of the prosthetic. Surgeon: Evans Cho Fire Extinguisher Repairer: Robin Drew Click Yes if Unassisted: No Anesthesia Type: General, Peripheral nerve block and Local Operative Notes Findings: Severe osteoarthritis of the right shoulder with large humeral osteophytes and multiple loose bodies. Closure Type: primary Specimen(s): none sent Prosthetic devices, grafts, tissues, transplants, or devices: Implants used in this procedure were manufactured by the [employer] and included a canal sparing size 2 humeral stem, a 50 mm x 18 mm humeral head with a neutral neck and a 50 mm all polyethylene pegged E +glenoid. Applied: implant(s) Estimated Blood Loss (mL): 150 Blood products transfused: none Status at Discharge Cognitive/behavioral status at discharge: oriented Functional status at discharge: independent ambulation Overall status at discharge: patient is progressing back to baseline Exam Vital Signs (past 8 hours): - 11/27/22 09:33 Temperature 97.3 F L Pulse Rate 80 Respiratory Rate 17 Blood Pressure 120/53 L Pulse Oximetry 98 Oxygen Flow Rate 0 Oxygen Delivery Method Nasal Cannula Oxygen Flow Rate 0 Narrative Exam Narrative: Pleasant 77-year-old male. Awake, alert, and oriented. Intraoperative right shoulder dressing grossly clean, dry, and intact with 1 nickel sized spot of blood on the proximal dressing. Sling is fitting loosely around the patient's neck though the arm is extended at the patient's side resting on a pillow. No appreciable swelling or bruising at this point. Strength and sensation intact to distal right upper extremity. 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 Patient was on 2-3 L of oxygen overnight but is now at 98% on room air. Plan of Treatment: Plan to work with physical therapy this morning and discharge to home if safe and able. Patient will keep intraoperative Aquacel clean, dry, and intact until his 2 week follow up with Orthopedics. Patient will continue multimodal pain regimen to include Tylenol and ibuprofen as needed. Patient does not want prescription for oxycodone at this time and states he will call our office if he feels he needs it. He will continue on aspirin 81 mg twice daily for 4 weeks following surgery. Discharge Plan Discharge Plan Patient Disposition: Home Provider Discharge Comment: Discharge home when safe and cleared by Physical therapy Discharge orders & Medications Prescriptions: Continued ibuprofen 800 mg Tablet 800 mg PO Q8H PRN (Reason: Pain) glipizide 10 mg Tablet 10 mg PO BID metformin 1,000 mg Tablet 1,000 mg PO BID empagliflozin 25 mg Tablet 25 mg PO QAM acetaminophen 325 mg Tablet 650 mg PO Q6HR Qty: 100 0RF Changed aspirin 81 mg Tablet,Delayed Release (Dr/Ec) 81 mg PO BID Qty: 56 0RF Follow up/Referrals: Doctor Valdes MD [Primary Care Provider] - Evans Cho MD [Physician] - As previously scheduled (Follow up w/ Kelsey Davies PA-C, on 12/12/2022 @ 4:10 pm at [facility] in [place].) Diet/Activity/Treatments Diet: Diet as Tolerated Activity: Progress with physical therapy Cold/Heat Therapy: Ice to right shoulder as needed Skin/Wound/Dressing Care Report to your healthcare provider any signs of infection, such as:: chills, fever, night sweats, unusual drainage and unusual redness Dressing: Keep dressing clean, dry, and intact until 2 week follow up with Orthopedics Visit Report/Discharge Packet Instructions: DI for Shoulder Replacement Stand Alone Forms: Patient Portal/API, Stroke Signs & Symptoms, Surgery Discharge Discharge Data Primary Care Provider: Doctor Lucio Quality VTE Deep Vein Thrombosis/Pulmonary Embolism Present on Admission: No
--- NOTE | 2022-11-27 11:35 | PC.NURSE ---
Pt has been cleared by Physical Therapy and is ready to discharge home. Will be getting assistance from his for dressing. Went over d/c instructions with Pt and Spouse - discussed d/c meds, time of last dose, reviewed stroke education, s/s of infection, and follow up. Pt denied further questions and will be taken out via w/c by HEPATOLOGIST to pov with Spouse and all belongings.
--- NOTE | 2022-11-27 12:01 | PT.IIE ---
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) Hx of appendectomy Hx of knee surgery Medical History (Last Reviewed 11/27/22 @ 11:05 by Yoli Davies PA-C) Cryptococcal pneumonitis (2007) Diabetes Easy bruisability Hearing impaired Osteoarthritis Physical Therapy Inpatient Evaluation/Re-Eval M1 PT/OT-IP Prior Functional Status Start: 11/27/22 11:51 Freq: NEEDED Status: Active Protocol: Document 11/27/22 11:52 ES (Rec: 11/27/22 12:01 ES [id number]) Medical Review Prior Functional Status Medical History Reviewed Yes Diet/Fluid Consistency Regular Communication WFL Mobility and Gait Indep Activities of Daily Living and IADL's Indep Social History Household Members spouse Living Arrangements House Number of Floors (Floors) Two Floors Number of Stairs To Enter/Railing? 1, no rail Home Environment Standard Height Toilet,High Toilet,Walk in Shower Home Equipment Shower Seat with Backrest,Lift Recliner,Grab Bars In Shower Additional Social History Comment Patient has 14 stairs with B rails up to second floor where his bedroom and bathroom are. Has an adjustable bed. M2 PT-IP Current Condition Start: 11/27/22 11:51 Freq: NEEDED Status: Active Protocol: Document 11/27/22 11:52 ES (Rec: 11/27/22 12:01 ES [id number]) Physical Therapy Current Condition Current Condition Evaluation Date 11/27/22 Treatment Diagnosis S/p R TSA Onset Date 11/26/22 M3 PT-IP Subjective Start: 11/27/22 11:51 Freq: NEEDED Status: Active Protocol: Document 11/27/22 11:52 ES (Rec: 11/27/22 12:01 ES [id number]) Subjective Physical Therapy Visit Type Type Initial Evaluation Visit Start Time 10:20 Visit Stop Time 10:48 Total Visit Minutes 28 Physical Therapy Visit Comments Patient Comments Patient alert in bed, present. Patient agreeable to work with PT. Reported he is starting to feel some pain in the front of his shoulder near the axilla. Denied numbness/ tingling. Therapy Pain Assessment Pain When Pain Assessed At Rest Pain Present Pain Present Pain Reported Location Right Shoulder Intensity 3 Scale Used Numeric (0 - 10) Pain Management Techniques Re-positioning M4 PT-IP Mobility and Gait Start: 11/27/22 11:51 Freq: NEEDED Status: Active Protocol: Document 11/27/22 11:52 ES (Rec: 11/27/22 12:01 ES [id number]) PT-Bed Mobility Assessment Supine to Sit Supine to Sit Standby Assistance,Head of Bed Elevated Sit to Supine Sit to Supine Standby Assistance,Head of Bed Elevated Scooting Scooting to Edge of Bed Independent Scooting Up and Down in Bed Independent PT-Transfer Assessment Sit to and From Stand Sit to and from Stand Independent Equipment Transfer Assistive Device None Orthotic/Prosthetic Devices or Brace: Yes Transfers Transfer Destination Chair Transfer Technique Stand Step Pivot Transfer Ability Level of Assist Independent Comments Mobility Comments Able to perform transfers without use of RUE without difficulty. Gait Assessment Gait Gait Assistance Required: Independent Distance (Feet) 200 Assistive Devices Assistive Device None Orthotic/Prosthetic Devices or Brace: Yes Gait Deviations General Gait Pattern Within Normal Limits Stair Climbing Assessment Evaluation Level of Assist On Stairs Independent Devices Stair Climbing Assistive Devices Left Railing Technique/Endurance Stair Climbing Direction Ascend and Descend Stair Climbing Technique Step to Step Number of Steps Climbed 3 Query Text: Stair Climbing Set # Repetitions (reps) 3 Comments Stair Climbing Comments Able to perform without use of RUE without difficulty. Step- to pattern at baseline. PT-Balance Assessment Sitting Balance and Reactions Static Sitting Balance Ability Normal Dynamic Sitting Balance Ability Normal Standing Balance and Reactions Static Standing Balance Ability Normal Dynamic Standing Balance Ability Normal M5 PT-IP Objective Assessments Start: 11/27/22 11:51 Freq: NEEDED Status: Active Protocol: Document 11/27/22 11:52 ES (Rec: 11/27/22 12:01 ES [id number]) Orientation Orientation/Cognition Level of Alertness Alert Orientation Name,Age,Birthday,Month,Date, Year,Day of Week,Place, Situation Language Function Ability No Deficits Noted Safety Awareness Understands Safety Issues Memory Description No Deficits Noted Gross Range of Motion Upper Extremity ROM Assessment Right Impaired Impairments R elbow, wrist, hand WFL. Shoulder limited 2/2 surgery. Lower Extremity ROM Assessment Within Functional Limits Strength Upper Extremity Strength Assessment Right Impaired Shoulder not tested 2/2 surgery Elbow Grossly 3+/5 Wrist WFL Hand WFL Lower Extremity Strength Assessment Within Functional Limits Coordination Assessment Gross Coordination Gross Coordination WNL M6 PT-IP Treatment Start: 11/27/22 11:51 Freq: NEEDED Status: Active Protocol: Document 11/27/22 11:52 ES (Rec: 11/27/22 12:01 ES [id number]) Physical Therapy Treatment Exercises Exercises Shoulder Pendulums,Elbow Flexion/Extension,Wrist ROM, Hand ROM Education Education Provided Precautions,Weight Bearing Status,Post-Op Packet,Safety Brace Education Donning,[place],Patient, Caregiver M7 PT-IP Assessment and Plan Start: 11/27/22 11:51 Freq: NEEDED Status: Active Protocol: Document 11/27/22 11:52 ES (Rec: 11/27/22 12:01 ES [id number]) PT Summary Assessment and Plan Potential Rehabilitation Potential Excellent Status of Condition at Evaluation Stable Summary Impairments Pain,ROM,Strength Assessment Summary Patient is a 77 year old s/p R TSA who presents at his baseline level of function. He required extra time for bed mobility due to decreased use of RUE, otherwise no difficulty with all mobility. He and demonstrated good understanding of post-op instructions, exercises, and donning/doffing sling. Patient 's pain was well-controlled throughout visit, and when present was alleviated with repositioning using pillows for support. Patient is appropriate to d/c home with ; no further skilled PT indicated at this time. Frequency of Treatment Frequency Of Treatment Discharge Precautions Shoulder Precautions Sling,PROM,Internal Rotation to Body,No External Rotation, No Abduction,Forward Flexion to 90 degrees,Pendulums Brace R shoulder sling at all times when up Recommendations To Nursing Amount of Assist Needed Independent Discharge Recommendations PT Discharge Recommendations Home with Assistance, Outpatient PT Transportation Needs at Discharge Private Vehicle
[2022-11-27] MEDS: ACETAMINOPHEN 325 MG TABLET 650 MG PO (12:18)
== END 2022-11-27 12:51 | disposition home or self-care (01) | DRG 483 ==
PROVIDERS: Admitting Provider Orthopaedic Surgery; Referring Provider Orthopaedic Surgery; Visit Provider Orthopaedic Surgery
PROC: 0RQJ0ZZ Repair Right Shoulder Joint, Open Approach (ICD-10-PCS; CPT 23472; principal; 2022-11-26 12:45)
DX: M19.011 Primary osteoarthritis, right shoulder (principal); M24.011 Loose body in right shoulder; M25.711 Osteophyte, right shoulder; E11.9 Type 2 diabetes mellitus without complications; Z79.84 Long term (current) use of oral hypoglycemic drugs; Z87.891 Personal history of nicotine dependence; Z20.822 Contact with and (suspected) exposure to COVID-19
CPT/HCPCS: 36415; 64450; 73020; 82962; 85014; 85018; 87635; 97161; C1776; C9803; J0171; J0690; J1100; J1815; J2250; J2405; J2704; J3010

== ENCOUNTER 2024-05-02 11:20 | Emergency (ER) | payer OTHER, SELFPAY ==
[2022-11-26 16:09] VITALS: BMI 31.2
[2024-05-02 11:28] VITALS: BP 181/79; PULSE 77; RESP 17; TEMP 36.3; O2SAT 97; BMI 30.9
--- NOTE | 2024-05-02 11:50 | ED_ITS ---
HPI - Extremity Injury (Lower) <Mai Frazier PA-C - Last Filed: 05/02/24 18:29> General Chief Complaint: Extremity Injury, Lower Stated Complaint: L leg pain Time Seen by Provider: 05/02/24 11:41 Source: patient Mode of arrival: Ambulatory History of Present Illness HPI Narrative: 78-year-old male with past medical history diabetes presents to the ED status post a mechanical fall sustained 3 days ago. Patient states that he was stepping out of his trailer when he fell and hit his ferrari on a step. Patient is concerned that he has significant bruising in his left lower leg and thigh. Patient complains of swelling in the area of the ferrari where he struck his leg. Patient states the swelling has been improving, is most concerned about the bruising. No numbness, tingling, weakness. Patient states that he is not in any pain. Patient is able to walk normally. Patient is concerned that he might have a blood clot. Related Data Home Medications Medication Instructions Recorded Confirmed empagliflozin 25 mg tablet 25 mg PO QAM 03/17/22 11/26/22 glipizide 10 mg tablet 10 mg PO BID 03/17/22 11/26/22 ibuprofen 800 mg tablet 800 mg PO Q8H PRN Pain 03/17/22 11/26/22 metformin 1,000 mg tablet 1,000 mg PO BID 03/17/22 11/26/22 Previous Rx's Medication Instructions Recorded acetaminophen 325 mg tablet 650 mg (2 x 325 mg) PO Q6HR #100 03/27/22 tabs aspirin 81 mg tablet,delayed 81 mg PO BID #56 tabs 11/27/22 release Allergies Allergy/AdvReac Type Severity Reaction Status Date / Time Penicillins AdvReac Mild Rash Verified 05/02/24 11:28 Review of Systems <Mai Frazier PA-C - Last Filed: 05/02/24 18:29> Constitutional Constitutional: Denies chills, Denies fatigue, Denies fever(s), Denies frequent falls, Denies lethargy and Denies weakness Eyes Eyes: Denies change in vision, Denies eye discharge, Denies irritation and Denies loss of vision ENT Ears, Nose, Mouth, and Throat: Denies change in voice, Denies dizziness, Denies neck pain, Denies sore throat and Denies throat swelling Cardiovascular Cardiovascular: Denies chest pain, Denies irregular heart rhythm, Denies lightheadedness, Denies palpitations, Denies dyspnea, Denies dyspnea on exertion and Denies orthopnea Respiratory Respiratory: Denies cough, Denies dyspnea, Denies dyspnea on exertion and Denies wheezing Gastrointestinal Gastrointestinal: Denies abdominal pain, Denies change in bowel habits, Denies diarrhea, Denies nausea and Denies vomiting Musculoskeletal Musculoskeletal: Denies neck pain and Denies numbness Comments: Frerari swelling, left leg bruising Integumentary/Breasts Skin/Breast: Denies pruritus, Denies erythema, Denies rash and Denies wounds Neurologic Neurologic: Denies behavioral changes, Denies confusion, Denies dizziness, Denies frequent falls, Denies loss of vision, Denies numbness and Denies weakness Psychiatric Psychiatric: Denies anxiety, Denies behavioral changes, Denies confusion, Denies depression, Denies homicidal ideation and Denies suicidal ideation Endocrine Endocrine: Denies fatigue, Denies flushing and Denies palpitations Hematologic/Lymphatic Hematologic/Lymphatic: Denies easy bruising Allergic/Immunologic Allergic/Immunologic: Denies urticaria, Denies throat swelling and Denies wheezing Patient History <Mai Frazier PA-C - Last Filed: 05/02/24 18:29> Medical History Easy bruisability Osteoarthritis Diabetes Cryptococcal pneumonitis (2007) Hearing impaired Surgical History 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) Hx of knee surgery Hx of appendectomy Social History household members: spouse Smoking Status: Former smoker alcohol intake: current Smoking Status: Former smoker alcohol intake frequency: holidays/special occasions only Substance Use Type: does not use Exam <Mai Frazier PA-C - Last Filed: 05/02/24 18:29> Narrative Exam Narrative: Const General:?cooperative, healthy appearing and comfortable [facility] Head:?normal to inspection Ears:?hearing grossly normal bilaterally Nose:?external nose normal Face and sinus:?normal facial exam and sinuses nontender Mouth:?oral mucosae normal Throat:?posterior oropharynx normal Eyes General:?appearance normal, both eyes and all related structures Neck Neck:?normal visual inspection and no lymphadenopathy noted Resp Effort & Inspection:?normal respiratory effort Auscultation:?clear to auscultation bilaterally Cardio Rate:?regular rate Rhythm:?regular rhythm Musculoskeletal Swelling, bruising noted to the anterior ferrari of the left leg. Dependent bruising noted on left heel. There is also bruising noted the inner, distal thigh area. Mild tenderness to palpation. Full range of motion. Strength and sensation is intact. Patient is neurovascularly intact. Gait normal. Neuro General:?patient alert, patient awake and patient oriented x3 Initial Vital Signs Initial Vital Signs: Vital Signs Temperature 97.4 F L 05/02/24 11:28 Pulse Rate 77 05/02/24 11:28 Respiratory Rate 17 05/02/24 11:28 Blood Pressure 181/79 H 05/02/24 11:28 Pulse Oximetry 97 05/02/24 11:28 Oxygen Delivery Method Room Air 05/02/24 11:28 <Selam Barbosa DO - Last Filed: 05/07/24 18:03> Initial Vital Signs Initial Vital Signs: Vital Signs Temperature 97.4 F L 05/02/24 11:28 Pulse Rate 77 05/02/24 11:28 Respiratory Rate 17 05/02/24 11:28 Blood Pressure 181/79 H 05/02/24 11:28 Pulse Oximetry 97 05/02/24 11:28 Oxygen Delivery Method Room Air 05/02/24 11:28 Course <Mai Frazier PA-C - Last Filed: 05/02/24 18:29> Orders Ordered: ED Orders 05/02/24 12:00 CT [facility] wo con Stat 05/02/24 12:19 CBC Auto Diff [Complete Blood Count AUTO DIFF] Stat CMP [Comprehensive Metabolic Panel] Stat Vital Signs Vital signs: Vital Signs - 8 hr 05/02/24 11:28 05/02/24 14:11 Temperature 97.4 F L Pulse Rate 77 74 Respiratory Rate 17 16 Blood Pressure 181/79 H 178/74 H Pulse Oximetry 97 95 Oxygen Delivery Method Room Air Room Air <DO Aida Wylie Last Filed: 05/07/24 18:03> Orders Ordered: ED Orders 05/02/24 12:00 CT [facility] wo con Stat 05/02/24 12:19 CBC Auto Diff [Complete Blood Count AUTO DIFF] Stat CMP [Comprehensive Metabolic Panel] Stat Vital Signs Vital signs: Vital Signs - 8 hr 05/02/24 11:28 05/02/24 14:11 Temperature 97.4 F L Pulse Rate 77 74 Respiratory Rate 17 16 Blood Pressure 181/79 H 178/74 H Pulse Oximetry 97 95 Oxygen Delivery Method Room Air Room Air MDM - Extremity Injury (Lower) <Mai Frazier PA-C - Last Filed: 05/02/24 18:29> Lab Data 05/02/24 12:19 05/02/24 12:19 Labs: Lab Results 05/02/24 Range/Units 12:19 WBC 9.3 (4.5-11.0) X10^3/uL RBC 5.33 (4.5-5.9) X10^6/uL Hgb 16.3 (13.5-17.5) g/dL Hct 48.2 (41-53) % MCV 90.3 (80-100) fL MCH 30.6 (26-34) PG MCHC 33.9 (30-36) % RDW 13.1 (11.6-14.8) % Plt Count 243 (150-400) X10^3/uL Neut % (Auto) 70.0 (50-75) % Lymph % (Auto) 20.0 L (25-40) % [place] % (Auto) 7.1 (3-14) % Eos % (Auto) 1.9 L (2-4) % Baso % (Auto) 1.0 (0-2) % Neut # (Auto) 6500 (2484-3532) /uL Lymph # (Auto) 1900 (4223-3930) /uL [place] # (Auto) 700 (0-900) /uL Eos # (Auto) 200 (0-450) /uL Baso # (Auto) 100 (0-100) /uL Sodium 135 L (137-145) mmol/L Potassium 4.2 (3.4-5.1) mmol/L Chloride 105 (98-107) mmol/L Carbon Dioxide 24 (22-32) mmol/L BUN 10 (9-20) mg/dL Creatinine 0.56 L (0.66-1.25) mg/dL Estimated GFR > 60 (>60) mL/min BUN/Creatinine Ratio 17.9 (6-22) Glucose 219 H (80-110) mg/dL Calcium 9.1 (8.4-10.2) mg/dL Total Bilirubin 2.0 H (0.2-1.3) mg/dL AST 25 (17-59) IU/L ALT 18 (<50) IU/L Alkaline Phosphatase 74 (38-126) U/L Total Protein 6.6 (6.3-8.2) g/dL Albumin 3.9 (3.5-5.0) g/dL Globulin 2.7 (1.7-4.1) g/dL Albumin/Globulin Ratio 1.4 (1.0-2.8) MDM Narrative Medical decision making narrative: 78-year-old male with past medical history diabetes presents to the ED status post a mechanical fall sustained 3 days ago. Concern for hematoma versus fracture versus other. CT lower extremity obtained which shows a soft tissue hematoma within soft tissue adjacent to anterior and medial aspect of proximal to mid tibial shaft and measuring up to 4.5 x 1.9 x 9.7 cm in size. No abscesses. Mild soft tissue swelling around lower leg extending to ankle and foot. No acute fracture or dislocation. Physical exam is reassuring for soft compartments, patient is neurovascularly intact. Discussed findings with patient. Explained to patient that the hematoma is a blood clot contreras to a bruise and not a DVT. No further interventions indicated at this time. Counseled patient that the hematoma will be absorbed by the body and the bruises will fade over the next several days. ED return precautions discussed with patient. Patient verbalized understanding. Medical records reviewed: Yes <Selam Barbosa DO - Last Filed: 05/07/24 18:03> Lab Data Labs: Lab Results 05/02/24 Range/Units 12:19 WBC 9.3 (4.5-11.0) X10^3/uL RBC 5.33 (4.5-5.9) X10^6/uL Hgb 16.3 (13.5-17.5) g/dL Hct 48.2 (41-53) % MCV 90.3 (80-100) fL MCH 30.6 (26-34) PG MCHC 33.9 (30-36) % RDW 13.1 (11.6-14.8) % Plt Count 243 (150-400) X10^3/uL Neut % (Auto) 70.0 (50-75) % Lymph % (Auto) 20.0 L (25-40) % [place] % (Auto) 7.1 (3-14) % Eos % (Auto) 1.9 L (2-4) % Baso % (Auto) 1.0 (0-2) % Neut # (Auto) 6500 (1873-1697) /uL Lymph # (Auto) 1900 (5699-4539) /uL [place] # (Auto) 700 (0-900) /uL Eos # (Auto) 200 (0-450) /uL Baso # (Auto) 100 (0-100) /uL Sodium 135 L (137-145) mmol/L Potassium 4.2 (3.4-5.1) mmol/L Chloride 105 (98-107) mmol/L Carbon Dioxide 24 (22-32) mmol/L BUN 10 (9-20) mg/dL Creatinine 0.56 L (0.66-1.25) mg/dL Estimated GFR > 60 (>60) mL/min BUN/Creatinine Ratio 17.9 (6-22) Glucose 219 H (80-110) mg/dL Calcium 9.1 (8.4-10.2) mg/dL Total Bilirubin 2.0 H (0.2-1.3) mg/dL AST 25 (17-59) IU/L ALT 18 (<50) IU/L Alkaline Phosphatase 74 (38-126) U/L Total Protein 6.6 (6.3-8.2) g/dL Albumin 3.9 (3.5-5.0) g/dL Globulin 2.7 (1.7-4.1) g/dL Albumin/Globulin Ratio 1.4 (1.0-2.8) Discharge Plan Departure Patient Disposition: Home Clinical Impression: Ferrari injury Qualifiers: Encounter type: initial encounter Laterality: left Qualified Code(s): S89.92XA - Unspecified injury of left lower leg, initial encounter Instructions: DI for Hematoma (Bruise) Activity Restrictions/Additional Instructions: You were evaluated in the ED today for a ferrari injury. Your CT scan shows no fractures or dislocations. It appears that you have a bruise on your ferrari which will get reabsorbed over the next several days. There is no other treatment or intervention indicated at this time. Please follow-up with your PCP as soon as possible. Return to the ED if you have worsening symptoms. Prescriptions: No Action ibuprofen 800 mg Tablet 800 mg PO Q8H PRN (Reason: Pain) glipizide 10 mg Tablet 10 mg PO BID metformin 1,000 mg Tablet 1,000 mg PO BID empagliflozin 25 mg Tablet 25 mg PO QAM acetaminophen 325 mg Tablet 650 mg PO Q6HR Qty: 100 0RF aspirin 81 mg Tablet,Delayed Release (Dr/Ec) 81 mg PO BID Qty: 56 0RF Referrals: Miscellaneous,Doctor, MD [Primary Care Provider] - Stand Alone Forms: Patient Portal/API ED Sign-out <Selam Barbosa DO - Last Filed: 05/07/24 18:03> Cosign ED Attending Toña Attestation: I was available for consultation.
--- NOTE | 2024-05-02 12:00 | DI.CT.S_ITS ---
PROCEDURE: CT LE LT W CON INDICATIONS: Fall, swelling, hematoma TECHNIQUE: Noncontrast 2 mm axial sections acquired from the distal tibial shaft to the bottom of foot, with coronal and sagittal reformats.. COMPARISON: None. FINDINGS: Image quality: Excellent. Bones: Osteoarthritic changes are noted in left knee, left ankle and foot joints. No acute fracture or dislocation. No suspicious intraosseous lesions. No significant patellar subluxation. Soft tissues: There is mild subcutaneous soft tissue edema along anterior and slightly lateral aspect of left knee extending to around left lower leg and to the level of ankle and foot. No discrete drainable fluid collection is seen. No abnormal intramuscular soft tissue mass or fluid collection. Likely soft tissue hematoma along anterior medial aspect of proximal to mid tibial shaft is seen and measures up to 4.5 x 1.9 x 9.7 cm in size. IMPRESSION: 1. Soft tissue hematoma within soft tissue adjacent to anterior and medial aspect of proximal to mid tibial shaft and measures up to 4.5 x 1.9 x 9.7 cm in size. 2. No abnormal soft tissue calcifications. No abscess collection. Mild soft tissue swelling around lower leg extending to ankle and foot. 3. Left lower extremity osteoarthritis. No acute fracture or dislocation. No suspicious intraosseous lesions. Dictated by: Estuardo Betancourt M.D. on 05/02/2024 at 13:14 Approved by: Estuardo Betancourt M.D. on 05/02/2024 at 13:20
[2024-05-02 12:37] LABS: Add Manual Diff / Slide Review NO; Basophils Absolute Auto 100 /uL (0-100); Eosinophils Absolute Auto 200 /uL (0-450); Eosinophils Percent Auto 1.9 % (2-4); Hematocrit 48.2 % (41-53); Hemoglobin 16.3 g/dL (13.5-17.5); Lymphocytes Absolute Auto 1900 /uL (1100-4500); Mean Corpuscular HGB Conc 33.9 % (30-36); Mean Corpuscular Hemoglobin 30.6 PG (26-34); Mean Corpuscular Volume 90.3 fL (80-100); Monocytes Absolute Auto 700 /uL (0-900); Monocytes Percent Auto 7.1 % (3-14); Neutrophils Absolute Auto 6500 /uL (1500-7000); Platelet Count 243 X10^3/uL (150-400); Red Blood Cell Count 5.33 X10^6/uL (4.5-5.9); Red Cell Distribution Width 13.1 % (11.6-14.8); White Blood Cell Count 9.3 X10^3/uL (4.5-11.0)
[2024-05-02 12:40] LABS: Alanine Aminotransferase 18 IU/L (<50); Albumin 3.9 g/dL (3.5-5.0); Albumin Globulin Ratio 1.4 (1.0-2.8); Alkaline Phosphatase 74 U/L (38-126); Aspartate Aminotransferase 25 IU/L (17-59); BUN Creatinine Ratio 17.9 (6-22); Blood Urea Nitrogen 10 mg/dL (9-20); Calcium 9.1 mg/dL (8.4-10.2); Carbon Dioxide 24 mmol/L (22-32); Chloride 105 mmol/L (98-107); Estimated Glomerular Filt Rate > 60 mL/min (>60); Globulin 2.7 g/dL (1.7-4.1); Glucose 219 mg/dL (80-110); HEMOLYSIS 48 (0-50); Potassium 4.2 mmol/L (3.4-5.1); Sodium 135 mmol/L (137-145); Total Protein 6.6 g/dL (6.3-8.2)
[2024-05-02 14:11] VITALS: BP 178/74; PULSE 74; RESP 16; O2SAT 95
== END 2024-05-02 14:13 | disposition home or self-care (01) ==
PROVIDERS: Emergency Provider Student in an Organized Health Care Education/Training Program
DX: S89.92XA Unspecified injury of left lower leg, initial encounter (principal); X58.XXXA Exposure to other specified factors, initial encounter
CPT/HCPCS: 36415; 73700; 80053; 85025; 99284